=== PATIENT | male | born 1965 | race Caucasian/White ===

== ENCOUNTER 2016-08-30 20:51 | Emergency (ER) | payer OTHER ==
[~2016-08-30 20:51] MED LIST: ADVAIR 250-501 EACH IH; ADVAIR 2501 DISK W/D PO; AMOXIL500 MG PO; ASPIRIN PO; ATARAX PO; CARAFATE PO; CELEXA PO; CIPRO PO; CITALOPRAM HBR40 MG PO; CLARITIN10 M3 PO; COMBIVENT INH14.7 GM INH; COREG3.125 M1; FISH OIL 1,0001 CAP PO; FLONASE 0.05% N16 G1; FLONASE16 GM; HYDROCHLOROTHIA25 MG PO; KLONOPIN PO; LEXAPRO20 MG PO; LEXAPRO5 MG PO; LISINOPRIL PO; LISINOPRIL20 MG PO; LOTRIMIN 1% CR30 GM EXT; MAGIC MOUTHWASH PO; MAGNESIUM400 MG PO; MICRO-K10 MEQ PO; NYSTATIN15 G1 TP; PRAVACHOL PO; PRAVASTATIN SOD40 MG PO; PREDNISONE PO; PRILOSEC PO; PRILOSEC40 MG PO; REGLAN PO; SUDAFED PO; TUDORZA PRESS400 MCG IH; VITAMIN B 12; VOLTAREN75 MG PO; ZOLOFT PO; ZYRTEC10 M2 PO
== END 2016-08-30 23:24 | disposition home or self-care (01) ==
LOC: SED 20:51
DX: T63.461A Toxic effect of venom of wasps, accidental (unintentional), initial encounter (principal); I10 Essential (primary) hypertension; E78.5 Hyperlipidemia, unspecified; J44.9 Chronic obstructive pulmonary disease, unspecified; K21.9 Gastro-esophageal reflux disease without esophagitis; K22.70 Barrett's esophagus without dysplasia; Z86.73 Personal history of transient ischemic attack (TIA), and cerebral infarction without residual deficits; Z98.890 Other specified postprocedural states; Z79.82 Long term (current) use of aspirin; Z79.899 Other long term (current) drug therapy; Y92.9 Unspecified place or not applicable
CPT/HCPCS: 96372; 99283; J1100; J1885